=== PATIENT | female | born 1990 | race Two or more races ===

== ENCOUNTER 2017-09-20 13:02 | Inpatient (IN) | payer SELFPAY ==
[2017-09-20] MEDS: IV RINGERS,LACTATED 1000ML 1,000 ML IV ×4 (14:25→23:29)
[2017-09-20] MEDS ORDERED: PROCHLORPERAZINE 10 MG/2 ML VIAL. IV (14:30)
[2017-09-20] MEDS ORDERED: LIDOCAINE 1% PF 2 ML VIAL. ID (14:30)
[2017-09-20] MEDS ORDERED: MORPHINE SULFATE 4 MG/ML DISP.SYRIN. IV (14:30)
[2017-09-20] MEDS ORDERED: ONDANSETRON PF 4 MG/2 ML VIAL. IV ×3 (14:30→19:00)
[2017-09-20] MEDS ORDERED: fentaNYL PF VIAL 100 MCG/2 ML VIAL IV ×2 (14:30)
[2017-09-20] MEDS ORDERED: diphenhydrAMINE 50 MG/ML VIAL IVP ×2 (14:30)
[2017-09-20 14:43] LABS: HEMATOCRIT 32.1 % (36.0-47.0); HEMOGLOBIN 10.9 g/dL (12.0-15.5); MEAN CORPUSCULAR HEMOGLOBIN 28 pg (25-35); MEAN CORPUSCULAR HGB CONC 34 g/dL (31-37); MEAN CORPUSCULAR VOLUME 83 fL (79-100); PLATELET COUNT 204 x10^3/uL (140-400); RED BLOOD COUNT 3.87 x10^6/uL (3.50-5.40); RED CELL DISTRIBUTION WIDTH 15.2 % (11.5-14.5)
[2017-09-20] MEDS ORDERED: CITRIC ACID/SODIUM CITRATE 30 ML SOLUTION. (15:38)
[2017-09-20] MEDS: CLINDAMYCIN 900MG PREMIX 50 ML IV (16:05)
[2017-09-20] MEDS ORDERED: fentaNYL PF VIAL 100 MCG/2 ML VIAL (16:11)
[2017-09-20] MEDS: CITRIC ACID/SODIUM CITRATE 30 ML SOLUTION. PO (16:11)
[2017-09-20] MEDS ORDERED: FAMOTIDINE 20 MG/2 ML VIAL (16:11)
[2017-09-20] MEDS ORDERED: METOCLOPRAMIDE HCL 10 MG/2 ML VIAL. (16:11)
[2017-09-20] MEDS ORDERED: MORPHINE PF 5 MG/10 ML VIAL. (16:11)
[2017-09-20] MEDS ORDERED: ONDANSETRON PF 4 MG/2 ML VIAL. (16:11)
[2017-09-20] MEDS ORDERED: OXYTOCIN 10 UNIT/ML VIAL. ×2 (16:11→17:10)
[2017-09-20] MEDS ORDERED: PHENYLEPHRINE in 0.9% NACL PF 1 MG/10 ML SYRINGE. IV (16:37)
[2017-09-20] MEDS ORDERED: oxyCODONE/APAP 5/325 1 TAB TABLET PO (19:00)
[2017-09-20] MEDS ORDERED: MAGNESIUM HYDROXIDE 2,400 MG/30 ML ORAL.SUSP. PO (19:00)
[2017-09-20] MEDS ORDERED: SIMETHICONE 80 MG TAB.CHEW PO (19:00)
[2017-09-20] MEDS ORDERED: OXYTOCIN 30 UNIT/500 ML PREMIX 500 ML IV (19:00)
[2017-09-20] MEDS ORDERED: MAG HYDROX/ALUMINUM HYD/SIMETH 30 ML ORAL.SUSP PO (19:00)
[2017-09-20] MEDS ORDERED: ZOLPIDEM 5 MG TABLET. PO (19:00)
[2017-09-20] MEDS ORDERED: MMR per PROTOCOL. MC (19:00)
[2017-09-20] MEDS ORDERED: diphenhydrAMINE ORAL ELIXIR 12.5 MG/5 ML ML PO (19:00)
[2017-09-20] MEDS: KETOROLAC 30 MG/ML INJ. IV (19:46)
[2017-09-20] MEDS ORDERED: ceFAZolin SODIUM 1 GM in IV DEXTROSE 5% 50 ML IV (22:00)
[2017-09-21] MEDS: ceFAZolin SODIUM IV Push 1 GM VIAL. IVP ×3 (03:36→14:00)
[2017-09-21 05:33] LABS: ADD MAN DIFF? NO
[2017-09-21] MEDS: IV RINGERS,LACTATED 1000ML 1,000 ML IV ×2 (05:37→13:37)
[2017-09-21 05:39] LABS: BASO % 0 % (0-3); EOS % 1 % (0-3); HEMATOCRIT 29.8 % (36.0-47.0); HEMOGLOBIN 10.3 g/dL (12.0-15.5); LYMPH # 1.1 x10^3/uL (1.0-4.8); LYMPH % 14 % (24-48); MEAN CORPUSCULAR HEMOGLOBIN 29 pg (25-35); MEAN CORPUSCULAR HGB CONC 35 g/dL (31-37); MEAN CORPUSCULAR VOLUME 83 fL (79-100); MONO # 0.5 x10^3/uL (0.0-1.1); MONO % 6 % (0-9); NEUT # 6.7 x10^3uL (1.8-7.7); NEUT % 80 % (31-73); PLATELET COUNT 184 x10^3/uL (140-400); RED BLOOD COUNT 3.58 x10^6/uL (3.50-5.40); RED CELL DISTRIBUTION WIDTH 14.9 % (11.5-14.5); WHITE BLOOD COUNT 8.4 x10^3/uL (4.0-11.0)
[2017-09-21] MEDS ORDERED: FERROUS SULFATE 325 MG TABLET. PO (08:00)
[2017-09-21] MEDS: DOCUSATE SODIUM 100 MG CAPSULE. PO ×2 (08:17→20:14)
[2017-09-21] MEDS: FERROUS SULFATE 325 MG TABLET. PO ×2 (08:17→17:38)
[2017-09-21] MEDS: oxyCODONE/APAP 5/325 1 TAB TABLET PO ×2 (08:18→17:45)
[2017-09-21] MEDS: 0.9 % SODIUM CHLORIDE 10 ML DISP.SYRIN. IV (11:05)
[2017-09-21] MEDS: ACETAMINOPHEN 325 MG TABLET. PO (15:16)
[2017-09-22] MEDS: oxyCODONE/APAP 5/325 1 TAB TABLET PO ×3 (00:49→22:45)
[2017-09-22] MEDS: FERROUS SULFATE 325 MG TABLET. PO ×2 (08:21→17:00)
[2017-09-22] MEDS: ACETAMINOPHEN 325 MG TABLET. PO (08:21)
[2017-09-22] MEDS: DOCUSATE SODIUM 100 MG CAPSULE. PO ×2 (08:21→22:45)
[2017-09-23 07:15] LABS: RPR Non Reactive (Non Reactive)
[2017-09-23] MEDS: FERROUS SULFATE 325 MG TABLET. PO ×2 (08:13→17:18)
[2017-09-23] MEDS: IBUPROFEN 800 MG TABLET. PO ×2 (08:14→17:19)
[2017-09-23] MEDS: DOCUSATE SODIUM 100 MG CAPSULE. PO ×2 (08:14→17:18)
[2017-09-23] MEDS: oxyCODONE/APAP 5/325 1 TAB TABLET PO ×2 (08:15→14:30)
[2017-09-24] MEDS: IBUPROFEN 800 MG TABLET. PO (05:34)
[2017-09-24] MEDS: DOCUSATE SODIUM 100 MG CAPSULE. PO (08:26)
[2017-09-24] MEDS: FERROUS SULFATE 325 MG TABLET. PO (08:26)
[2017-09-24] MEDS: oxyCODONE/APAP 5/325 1 TAB TABLET PO (08:28)
== END 2017-09-24 16:45 | disposition home or self-care (01) | DRG 766 ==
LOC: 3 NORTH 09-24 13:18 → 3 SO LND 13:02 → 3 NORTH 09-24 13:19 → 3 SO LND 13:31 → 3 NORTH 22:53
PROC: 10D00Z1 Extraction of Products of Conception, Low, Open Approach (ICD-10-PCS; principal; 2017-09-20)
DX: O82 Encounter for cesarean delivery without indication (principal); Z37.0 Single live birth; Z3A.00 Weeks of gestation of pregnancy not specified
CPT/HCPCS: 36415; 85025; 85027; 86593; 86850; 86900; 86901; J0690; J1885; J2270; J2370; J2405; J2590; J2765; J3010; J3490; J7120; S0028